=== PATIENT | male | born 1985 | race Caucasian/White ===

== ENCOUNTER 2018-03-11 01:21 | Emergency (ER) | payer OTHER, SELFPAY ==
[2018-03-11 01:22] VITALS: BP 142/83; PULSE 92; RESP 22; TEMP 36.7; O2SAT 97; BMI 35.2
[2018-03-11] MEDS: Naproxen 500 MG Tablet PO (01:37)
[2018-03-11] MEDS: predniSONE 20 MG Tablet 60 MG PO (01:38)
[2018-03-11] MEDS: morphine 8 MG/ML Syringe IM (01:38)
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
--- NOTE | 2018-03-11 02:07 | ED.DEP ---
ED Disposition - Plan for ED Patient: Disposition: Home or Assisted Living Chief Complaint: Back Instructions: ED Sciatica, ED Spasm Back No Trauma Prescriptions: Oxycodone HCl/Acetaminophen [Percocet 5/325] 1 tablet PO Q6H PRN PRN 5 Days #20 tablet PRN Reason: Pain Naproxen [Naprosyn] 500 mg PO BID PRN PRN #20 tablet PRN Reason: Pain Prednisone 10 mg PO UD #33 tablet Cyclobenzaprine [Flexeril] 10 mg PO TID PRN #20 tablet PRN Reason: Muscle Spasm Referrals: Yina Manrique MD [STAFF PHYSICIAN] - 1-2 Weeks
[2018-03-11] MEDS: HYDROmorphone 1 MG/ML Syringe IM (02:35)
[2018-03-11] MEDS: oxyCODONE 5 MG Tablet PO (03:35)
[2018-03-11 03:37] VITALS: BP 140/105; PULSE 71; RESP 14; O2SAT 98
== END 2018-03-11 03:37 | disposition home or self-care (01) ==
PROVIDERS: Emergency Provider Emergency Medicine
DX: M62.830 Muscle spasm of back (principal); M54.31 Sciatica, right side
CPT/HCPCS: 96372; 99283

== ENCOUNTER 2018-05-16 13:39 | Emergency (ER) | payer OTHER, SELFPAY ==
[2018-05-16 13:40] VITALS: BP 153/81; PULSE 71; RESP 17; TEMP 36.6; O2SAT 97; BMI 34.9
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
--- NOTE | 2018-05-16 14:08 | ED.DEP ---
ED Disposition - Plan for ED Patient: Chief Complaint: Back Instructions: ED Spasm Back No Trauma Prescriptions: Naproxen [Naprosyn] 500 mg PO BID PRN #20 tab Cyclobenzaprine [Flexeril] 10 mg PO TID PRN #10 tab PRN Reason: Muscle Spasm Referrals: Care Physician,No Primary [Primary Care Provider] - Diandra Boyle [NON-STAFF] - Nida Huizar MD [COURTESY STAFF PHYSICIAN] -
[2018-05-16] MEDS: Ketorolac 60 MG/2 ML Vial IM (14:23)
[2018-05-16 14:51] VITALS: BP 142/94; PULSE 68; RESP 16; O2SAT 96
== END 2018-05-16 14:52 | disposition home or self-care (01) ==
LOC: ED 14:14
PROVIDERS: Emergency Provider Emergency Medicine
DX: M54.9 Dorsalgia, unspecified (principal)
CPT/HCPCS: 96372; 99282

== ENCOUNTER 2018-05-29 21:15 | Emergency (ER) | payer OTHER, SELFPAY ==
[2018-05-29 21:15] VITALS: BP 138/82; PULSE 75; RESP 20; TEMP 36.1; O2SAT 95; BMI 32.8
--- NOTE | 2018-05-29 21:30 | ED.VISSUMM ---
- ER Visit Summary Date of Service: 05/29/18 Chief Complaint: Cough, flulike symptoms History of Present Illness: The patient is a 33 M who is otherwise healthy with no significant medical history presents with flulike symptoms. Patient symptoms began 2 days ago. He describes fevers, chills, myalgias, arthralgias. He had a scant cough without productive sputum. He feels like every time he takes a deep breath, he will get into coughing fits. He denies chest pain. He has no history of immunosuppression. He does not smoke. He has no underlying history of lung disease. He did not get a flu shot this year. Physical Examination: Vital signs reviewed General: Well-nourished, well-developed Head: Normocephalic, atraumatic Eyes: Pupils equal and reactive, extraocular muscles intact Neck, supple, no lymphadenopathy Heart: Regular rate and rhythm Respiratory: No distress, wheezing in all lung duarte Abdomen: Soft, nontender, nondistended, no peritoneal signs Back: Nontender Extremities: Nontender, no edema, no cords Skin: Normal color no rash Neuro: Alert and oriented, no focal or lateralizing deficits Test Results: [] Emergency Department Course and Treatment: The patient presents with fever, cough, and wheezing. I did obtain a flu which was negative. He was not hypoxic or tachypneic. The patient was given nebulized breathing treatments with improvement of his aeration. Given his cough and fever, I am going to treat him for an atypical pneumonia. He started on azithromycin here. He will be continued on prednisone and an albuterol inhaler. At this time, I do feel it is safe for outpatient therapy. He is resting comfortably. He had no hypoxia. He was counseled on concerning symptoms and reasons to return. He will be discharged home. Treatment Plan: [] Disposition: Discharge Impression: 1. Acute infectious bronchitis This note was generated with [employer] dictation software. It may contain incorrect words, spelling, and punctuation that were not noted in review of the chart prior to signing ED Disposition - Plan for ED Patient: Chief Complaint: Cold Sx Instructions: ED Upper Resp Infec Abx Tx Prescriptions: Azithromycin [Zithromax] 250 mg PO DAILY #4 tab Prednisone 10 mg PO UD #33 tab Referrals: Care Physician,No Primary [Primary Care Provider] -
[2018-05-29 21:40] VITALS: BP 134/74; PULSE 70; PULSE 72; RESP 18; RESP 20; TEMP 36.1; O2SAT 96; O2SAT 98
[2018-05-29] MEDS: predniSONE 20 MG Tablet 60 MG PO (21:51)
[2018-05-29] MEDS: Ketorolac 60 MG/2 ML Vial IM (21:52)
[2018-05-29 21:56] VITALS: PULSE 70; RESP 20
[2018-05-29] MEDS: Albuterol 2.5 MG/3 ML VIAL.NEB. INHALATION ×2 (21:58)
[2018-05-29] MEDS: Ipratropium/Albuterol Sulfate 3 ML AMPUL.NEB INHALATION (21:58)
--- NOTE | 2018-05-29 22:00 | RAD_ITS ---
STUDY: X-RAY CHEST REASON FOR EXAM: Male, 33 years old. Flulike symptoms for 2 days. TECHNIQUE: PA and lateral views of the chest. COMPARISON: None. FINDINGS: Lungs well expanded. There is minimal stranding in both lower lobes. There is no demonstrated pleural abnormality. Normal size heart. Normal mediastinum and andrea. Normal visualized pulmonary arteries. Normal visualized aortic arch and descending thoracic aorta. Normal visualized thoracic spine. Normal visualized ribs, clavicles, and shoulders. There is no demonstrated abnormality of the visualized soft tissue structures of the upper abdomen. RAD/Chest PA and Lateral IMPRESSION: Minimal bibasilar infiltrates. Electronically Signed: Sandor Kulkarni DO at 22:37 EST Tel [phone], Service support ,
[2018-05-29] MEDS: Azithromycin 250 MG Tablet 500 MG PO (22:35)
== END 2018-05-29 22:42 | disposition home or self-care (01) ==
LOC: ED 22:19
PROVIDERS: Emergency Provider Emergency Medicine
DX: J20.9 Acute bronchitis, unspecified (principal)
CPT/HCPCS: 71046; 87804; 94640; 96372; 99284

== ENCOUNTER 2018-10-09 00:40 | Emergency (ER) | payer OTHER, SELFPAY ==
[2018-10-09 00:42] VITALS: BP 168/117; PULSE 60; RESP 16; TEMP 36.4; O2SAT 97; BMI 31.6
--- NOTE | 2018-10-09 00:53 | RAD_ITS ---
HISTORY: Status post fall with left hand pain XR Hand Min 3 Views TECHNIQUE: 3 views # of images incl. paperwork: 3 COMPARISON: None. FINDINGS: No acute fracture or dislocation. Joint spaces are well-preserved. Mild soft tissue swelling along the lateral aspect of the fifth metacarpal. No radiopaque foreign body. RAD/Hand Min 3 Views IMPRESSION: 1. No acute fracture. 2. Mild lateral soft tissue swelling along the fifth metacarpal. at 0131 Reported and signed by: Mitchell Shook MD Electronically Signed: Mitchell Shook MD at 1:30 EDT Tel , Service support ,
--- NOTE | 2018-10-09 00:54 | ED.VIS.GEN ---
History of Present Illness Chief Complaint: Upper Extremity Injury Narrative: 33-year-old male presents with left hand pain. He is renovating his kitchen. He slipped on some paper and fell with his left arm outstretched and hit his hand into the countertop. This occurred about 1 hour ago. He complains of severe pain on the ulnar side of his hand just distal to the wrist no other injuries. Past Medical History - Allergies and Home Meds Allergies/Adverse Reactions: Allergies egg Allergy (Verified 10/09/18 00:41) Shortness of breath Primary Care Physician: Ol[place] Physician,Rose Primary [Primary Care Provider] - Past Medical History: None Surgical History: - - Bilateral knee surgery Smoking Status: Never smoker Review of Systems All systems negative except as indicated Physical Exam Vital Signs/Narrative: Vital Signs Temp Pulse Resp BP Pulse Ox 10/09/18 00:42 97.5 F L 60 16 168/117 H 97 General: Well nourished Eyes: EOMI ENT: Moist mucous membranes Cardiovascular: Regular rate Respiratory: No distress Extremities: - - Patient does have soft tissue swelling and tenderness in the region of the fifth metacarpal no bony deformity, active full range of motion, brisk capillary refill, normal sensation light touch Neurological: Alert Psychological: Normal affect Diagnostic/Tx/Re-eval Clinical Impression(s) from Imaging Studies Hand X-Ray 10/09/18 00:53 IMPRESSION: 1. No acute fracture. 2. Mild lateral soft tissue swelling along the fifth metacarpal. at 0131 Reported and signed by: Mitchell Shook MD Electronically Signed: Mitchell Shook MD at 1:30 EDT Tel , Service support , - Medical Decision Making Left hand x-ray negative. Patient given naproxen for pain. He was advised on supportive care including rest, ice, elevation. Patient discharged. ED Disposition - Plan for ED Patient: Diagnosis: Hand contusion Instructions: ED Contusion Hand Referrals: Care Physician,No Primary [Primary Care Provider] -
== END 2018-10-09 01:50 | disposition home or self-care (01) ==
LOC: ED 01:14
PROVIDERS: Emergency Provider Emergency Medicine
DX: S60.229A Contusion of unspecified hand, initial encounter (principal); W01.190A Fall on same level from slipping, tripping and stumbling with subsequent striking against furniture, initial encounter; Y93.9 Activity, unspecified; Y92.000 Kitchen of unspecified non-institutional (private) residence as the place of occurrence of the external cause; Y99.9 Unspecified external cause status
CPT/HCPCS: 73130; 99282

== ENCOUNTER 2020-05-09 19:54 | Emergency (ER) | payer OTHER, SELFPAY ==
[2020-05-09 19:55] VITALS: BP 122/59; PULSE 71; RESP 16; TEMP 37; O2SAT 98; BMI 33.3
--- NOTE | 2020-05-09 20:42 | ED.VISSUMM ---
- ER Visit Summary Date of Service: 05/09/20 Chief Complaint: Fever History of Present Illness: The patient is a 35 M who presents with fever that began today. Patient also admits to some general myalgias. Patient states his fever was up to 101.4 at home. Patient states he feels achy all over. Patient states nothing makes it better and nothing makes it worse. Patient does admit to loss of smell but denies any loss of taste. Patient admits to some rhinorrhea. Patient denies any shortness of breath or cough. Patient denies any chest pain. Patient admits to nausea but denies any vomiting. Patient states he feels weak. Physical Examination: Vital signs are stable. Patient is afebrile. Patient is in no acute distress. Oral mucosa is pink and moist. Neck is supple. Trachea is midline. There is no JVD noted. Heart was regular rate and rhythm. Lungs are clear and equal bilaterally. Abdomen is soft. Bowel sounds are normal. There is no tenderness. There is no rebound or guarding noted. Skin is warm dry. Cranial nerves II through XII are intact. There are no focal motor or sensory deficits noted. Extremities are intact. There is no calf tenderness or edema. Test Results: Portable 1 view chest x-ray was obtained. On my interpretation, lung duarte are clear. There is normal cardiac silhouette. Bony thorax is normal. There is no acute process noted. Radiologist also interpreted the x-ray and agrees. COVID-19 rapid antigen was obtained and was negative. Emergency Department Course and Treatment: Patient is feeling better on reevaluation. Patient was advised of his findings. Patient was advised of the sensitivity and specificity of the rapid antigen test. Patient does not want the PCR test. Patient is okay with the negative rapid antigen test. Patient was instructed to continue wearing a mask and handwashing frequently. Patient was instructed to follow-up with his primary care physician in 5 to 7 days. Patient understood and was agreeable with plan. All questions were answered. Disposition: Discharge home Impression: Viral illness This note was generated with [employer] software. It may contain incorrect words, spelling, and punctuation that were not noted in review of the chart prior to signing ED Disposition - Plan for ED Patient: Disposition: Home or Assisted Living Diagnosis: Viral illness Instructions: ED Viral Syndrome (Adult) Referrals: Care Physician,No Primary [Primary Care Provider] - 5-7 Days
[2020-05-09] MEDS: Mag Hydrox/Al Hydrox/Simeth 30 ML UDC PO (20:45)
--- NOTE | 2020-05-09 20:47 | RAD_ITS ---
STUDY: X-RAY CHEST REASON FOR EXAM: Male, 35 years old. Fever, loss of smell, diarrhea, and headache that started yesterday. TECHNIQUE: Frontal view COMPARISON: 05/29/2018 FINDINGS: The lungs are clear and expanded. There is no demonstrated pleural abnormality. Normal size heart. Normal mediastinum and andrea. Normal visualized pulmonary arteries. Normal visualized aortic arch and descending thoracic aorta. Normal visualized thoracic spine. Normal visualized ribs, clavicles, and shoulders. There is no demonstrated abnormality of the visualized soft tissue structures of the upper abdomen. RAD/Chest 1 View (Portable) IMPRESSION: Normal x-ray examination of the chest. Electronically Signed: Gonzalo Sorenson DO at 21:42 EST Tel [phone], Service support ,
== END 2020-05-09 22:59 | disposition home or self-care (01) ==
PROVIDERS: Emergency Provider Emergency Medicine
DX: B34.9 Viral infection, unspecified (principal); E66.9 Obesity, unspecified; R50.9 Fever, unspecified; J34.89 Other specified disorders of nose and nasal sinuses; R11.0 Nausea; M79.10 Myalgia, unspecified site; R53.1 Weakness
CPT/HCPCS: 71045; 87426; 99283

== ENCOUNTER 2020-05-11 18:33 | Emergency (ER) | payer OTHER, SELFPAY ==
[2020-05-11 18:34] VITALS: BP 133/79; PULSE 76; RESP 15; TEMP 36.6; O2SAT 98; BMI 35.2
[2020-05-11] MEDS: 0.9% Normal Saline 1,000 ML 1000 ML IV (18:39)
[2020-05-11 18:41] VITALS: BP 133/79; PULSE 76; RESP 15; TEMP 36.6; O2SAT 98
[2020-05-11] MEDS: Ondansetron 4 MG/2 ML Vial IV (18:52)
[2020-05-11 19:53] LABS: Absolute Neutrophil Count 15.1 X10^3/uL (2.0-7.7); Basophil# 0.05 X10^3/uL; Basophil% 0.3 % (0-1); Eosinophil# 0.13 X10^3/uL; Eosinophils% 0.8 % (0-5); Hematocrit 48.7 % (40-54); Lymphocyte % 2.9 % (19-41); Mean Corp Hgb Conc 32.9 g/dL (32-36); Mean Corpuscular Hgb 28.8 pg (27.0-32.0); Mean Corpuscular Volume 87.7 fL (80-94); Mean Platelet Vol. 12.2 fl (6.2-12.0); Monocyte# 1.16 X10^3/uL; Monocyte% 6.8 % (0-10); NRBC Flagged by Analyzer 0 % (0-5); Neutrophil % 88.6 % (47-70); POSITIVE DIFFERENTIAL YES; Platelet Count 249 K/mm3 (150-450); RBC Distribution Width CV 12.9 % (11.6-14.6); RBC Distribution Width SD 41.2 fl (35.1-43.9); Red Blood Count 5.55 M/mm3 (4.6-6.2); White Blood Count 17.1 K/mm3 (4.4-11.0)
[2020-05-11 19:59] LABS: Differential Indicated SCAN CRITERIA MET
--- NOTE | 2020-05-11 20:06 | CT_ITS ---
STUDY: CT ABDOMEN AND PELVIS WITHOUT CONTRAST REASON FOR EXAM: Male, 35 years old. Abdominal PAIN, VOMITING, DIARRHEA RADIATION DOSAGE (If Supplied By Facility): CTDIvol = ( 14.96 ) mGy, DLP = ( 811.19 ) mGycm TECHNIQUE: Transaxial images were obtained from the dome of the diaphragm to the symphysis pubis without oral contrast, and without intravenous contrast. Sagittal and coronal images were reconstructed. Individualized dose optimization techniques were used for this CT. COMPARISON: None. FINDINGS: The visualized lung bases are unremarkable. The visualized portions of the heart are within normal limits. Normal liver. Normal gallbladder and extrahepatic biliary system. Normal spleen. Normal pancreas. Normal bilateral adrenal glands. Normal right kidney. Normal left kidney. Evaluation of the GI tract is limited by absence of oral contrast. Cannot exclude stomach wall thickening. No dilated loops of bowel or evidence for obstruction. Cannot exclude segmental thickening of the mcnally of the small or large bowel. Cannot exclude enteritis or colitis. Moderate diffuse fecal retention. Appendix within normal limits. Normal abdominal aorta. Normal inferior vena cava. Normal retroperitoneum. Normal urinary bladder. Normal abdominal wall. Normal osseous structures. CT/Abdomen/Pelvis without Cont IMPRESSION: No definite acute or significant abnormality seen. Electronically Signed: Ezio Fowler MD at 21:13 EST , Service support ,
[2020-05-11 20:07] LABS: ALB/GLOB Ratio 0.8 RATIO (0.9-2.4); AST(SGOT) 13 U/L (15-37); Alanine Aminotransfer ALT/SGPT 27 U/L (16-61); Albumin, Serum 3.2 g/dL (3.2-5.0); Alkaline Phosphatase 85 U/L (45-117); Anion Gap 1 (5-15); BUN 15 mg/dL (7-18); BUN/Creat Ratio 14.7 RATIO (10-20); Calcium,Total 8.2 mg/dL (8.5-10.1); Chloride 113 mmol/L (98-107); Creatinine, Serum 1.02 mg/dL (0.70-1.30); EST Glomerular Filtration Rate 88 mL/min (>60); Est Glom Filt Rate - Afr Amer 106 mL/min (>60); Estimated Creatinine Clearance 109.89 ml/min; Glucose 89 mg/dL (74-106); Lipase 78 U/L (73-393); Potassium 4.3 mmol/L (3.5-5.1); Protein, Total 7.2 g/dL (6.4-8.2); Sodium Level 137 mmol/L (136-145)
[2020-05-11 20:13] LABS: Anisocytosis RARE; Platelet Estimate ADEQUATE (ADEQ); Red Cell Morphology N CHROM NORMAL (NORM C&C); Toxic Granulation RARE
--- NOTE | 2020-05-11 20:20 | RAD_ITS ---
STUDY: X-RAY CHEST REASON FOR EXAM: Male, 35 years old. epigastric pain TECHNIQUE: Single AP portable view of the chest. COMPARISON: 05/09/2020. FINDINGS: The lungs are clear and expanded. There is no demonstrated pleural abnormality. Normal size heart. Normal mediastinum and andrea. Normal visualized pulmonary arteries. Normal visualized aortic arch and descending thoracic aorta. Normal visualized thoracic spine. Normal visualized ribs, clavicles, and shoulders. There is no demonstrated abnormality of the visualized soft tissue structures of the upper abdomen. RAD/Chest 1 View (Portable) IMPRESSION: Normal x-ray examination of the chest. Electronically Signed: Ezio Fowler MD at 20:43 EST , Service support ,
[2020-05-11 20:36] VITALS: BP 112/50; PULSE 80; RESP 16; O2SAT 98
--- NOTE | 2020-05-11 21:33 | ED.VIS.GEN ---
History of Present Illness Chief Complaint: Nausea/Vomiting Narrative: Patient presents with nausea and vomiting for 2 days. He also has had some watery diarrhea. He has intermittent abdominal cramping. He has no chest pain or shortness of breath. He has no urinary symptoms. He has no flank pain. Review of systems: All systems negative except as indicated General: Denies: Fever Eyes: Denies: Visual changes - bilaterally ENT: Denies: Rhinorrhea, Sore throat Cardiovascular: Denies: Chest pain Respiratory: Denies: Dyspnea, Cough Gastrointestinal: Nausea vomiting diarrhea and abdominal cramping as in HPI Genitourinary: Denies: Dysuria Musculoskeletal: Denies: Myalgias Skin: Denies: Rash Neurological: Denies: Headache, Weakness Psych: Reports: negative Hematologic: Denies: Easy bruising, Easy bleeding Physical exam General: Well nourished, Well developed, he appears in some distress initially Head: Normocephalic, Atraumatic Eyes: Conjunctiva not pale ENT: Slightly dry mucous membranes Neck: Supple, Nontender, No lymphadenopathy Cardiovascular: Regular rate, Regular rhythm Respiratory: No distress, CTA bilaterally Abdomen: Soft, minimal abdominal tenderness throughout no guarding or rebound. No specific pain at McBurney's. Negative Cordero's. Back: Nontender, Normal Inspection. Negative for: CVA tenderness Extremities: Nontender, No edema Skin: Normal color, No rash Neurological: Alert, Normal Strength, Normal Sensation Psychological: Normal affect Past Medical History - Allergies and Home Meds Allergies/Adverse Reactions: Allergies egg Allergy (Verified 05/09/20 19:57) Shortness of breath Primary Care Physician: Care Physician,No Primary [Primary Care Provider] - Past Medical History: None Surgical History: - - Bilateral knee surgery Smoking Status: Never smoker Physical Exam Vital Signs/Narrative: Vital Signs Temp Pulse Resp BP Pulse Ox 05/11/20 20:36 80 16 112/50 L 98 05/11/20 18:41 97.8 F 76 15 133/79 H 98 05/11/20 18:34 97.8 F 76 15 133/79 H 98 Diagnostic/Tx/Re-eval - Medical Decision Making Patient has a normal ED work-up, he appears well he significantly improved I will discharge him in stable condition. He does have some slight leukocytosis which I attribute to a viral gastroenteritis and or the stress response. ED Disposition - Plan for ED Patient: Disposition: Home or Assisted Living Diagnosis: Nausea vomiting and diarrhea Instructions: ED Food Poison Or Gastroenteritis Prescriptions: Dicyclomine HCl [Bentyl] 20 mg PO TIDAC #20 cap Transmission Status: Pending to [id number] Ondansetron [Zofran Odt] 4 mg PO Q8H PRN PRN #10 tab PRN Reason: Nausea Transmission Status: Pending to [id number] Referrals: Care Physician,No Primary [Primary Care Provider] - 3-5 Days
[2020-05-11 21:49] VITALS: BP 138/79; PULSE 62; RESP 15; O2SAT 99
== END 2020-05-11 23:29 | disposition home or self-care (01) ==
PROVIDERS: Emergency Provider Emergency Medicine
DX: R11.2 Nausea with vomiting, unspecified (principal); R19.7 Diarrhea, unspecified; R10.13 Epigastric pain
CPT/HCPCS: 36415; 71045; 74176; 80053; 83690; 85025; 87635; 96361; 96374; 99285; U0005; J2405; U0003

== ENCOUNTER 2021-10-04 15:26 | Emergency (ER) | payer BC, SELFPAY ==
[2021-10-04 15:27] VITALS: BP 134/63; PULSE 72; RESP 18; TEMP 36.3; O2SAT 98; BMI 34.4
[2021-10-04] MEDS: Morphine 4 MG/ML Syringe IM (16:12)
[2021-10-04] MEDS: Ondansetron ODT 4 MG Tablet PO (16:25)
--- NOTE | 2021-10-04 16:30 | RAD_ITS ---
EXAM: XR SACRUM AND COCCYX, 2 OR MORE VIEWS CLINICAL INDICATION: Fall with pain TECHNIQUE: Frontal and lateral views of the sacrum and coccyx. This report was created using [employer] report generation technology. COMPARISON: None. FINDINGS: SACRUM/COCCYX: Unremarkable. No displaced fracture. No destructive or sclerotic lesions. Note that overlapping bowel shadows may however obscure fine detail in the frontal view. Sacroiliac joints are unremarkable. SOFT TISSUES: Unremarkable. No soft tissue swelling or gas. RAD/Sacrum-Coccyx min 2 Views IMPRESSION: Unremarkable sacro-coccygeal spine. Electronically Signed: Barron Shelby MD at 17:12 EDT ,
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
[2021-10-04 17:24] VITALS: BP 131/79; PULSE 55; RESP 16; O2SAT 95
== END 2021-10-04 17:29 | disposition home or self-care (01) ==
PROVIDERS: Emergency Provider Emergency Medicine; Visit Provider Emergency Medicine
DX: S30.0XXA Contusion of lower back and pelvis, initial encounter (principal); W16.822A Jumping or diving into other water striking bottom causing other injury, initial encounter; Y92.828 Other wilderness area as the place of occurrence of the external cause
CPT/HCPCS: 72220; 96372; 99283